=== PATIENT | female | born 1945 | race Caucasian/White ===

== ENCOUNTER 2017-07-17 17:42 | Emergency (ER) | payer MEDICARE, SELFPAY ==
[~2017-07-17] VITALS: Ht 157.5 cm; Wt 99.8 kg
[~2017-07-17 17:42] MED LIST: ALBU90OI INH; ALLERCLEAR10 MG PO; ATOR20 PO; ATOR40TA PO; Artificial Tear15 M6 BOTHEYES; BENZ100A PO; Bactrim Ds Tab1 EACH PO; CROM10OPSO BOTHEYES; Cleocin HCl300 MG PO; Hydroxyzine HCl50 MG PO; LEVSOD100 PO; LISHYD1012; METF500 PO; METF500C PO; METO50ER PO; MOMENI; NORT75; NORT75 PO; OMEP20ER PO; OMEPRAZOLE MAGN20 MG PO; PROM25; RANI150 PO; SIMV10 PO; SPACE CHAMBER1 EACH MC; Tussionex Penn480 ML PO; XYZAL5 MG; XYZAL5 MG PO; Zithromax250 MG PO
== END 2017-07-17 19:35 | disposition home or self-care (01) ==
LOC: ER 17:42
DX: S90.821A Blister (nonthermal), right foot, initial encounter (principal); E11.9 Type 2 diabetes mellitus without complications; Z85.3 Personal history of malignant neoplasm of breast; Z88.0 Allergy status to penicillin; Z88.1 Allergy status to other antibiotic agents; Z88.8 Allergy status to other drugs, medicaments and biological substances; Z88.5 Allergy status to narcotic agent; Z79.899 Other long term (current) drug therapy; Z98.890 Other specified postprocedural states; W01.190A Fall on same level from slipping, tripping and stumbling with subsequent striking against furniture, initial encounter
CPT/HCPCS: 99282

== ENCOUNTER 2017-07-31 00:45 | Day surgery (SDC) | payer MEDICARE, SELFPAY | END 2017-07-31 22:53 | disposition home or self-care (01) | LOC: WOUND 00:45 | DX: E11.621 Type 2 diabetes mellitus with foot ulcer (principal); L97.519 Non-pressure chronic ulcer of other part of right foot with unspecified severity; I10 Essential (primary) hypertension; Z87.891 Personal history of nicotine dependence; E11.40 Type 2 diabetes mellitus with diabetic neuropathy, unspecified | CPT/HCPCS: G0463 ==

== ENCOUNTER 2017-08-07 01:20 | Day surgery (SDC) | payer MEDICARE, SELFPAY | END 2017-08-07 22:48 | disposition home or self-care (01) | LOC: WOUND 01:20 | DX: E11.621 Type 2 diabetes mellitus with foot ulcer (principal); L97.512 Non-pressure chronic ulcer of other part of right foot with fat layer exposed; I10 Essential (primary) hypertension; Z87.891 Personal history of nicotine dependence | CPT/HCPCS: G0463 ==

== ENCOUNTER 2017-08-14 09:17 | Day surgery (SDC) | payer MEDICARE, SELFPAY | END 2017-08-14 22:42 | disposition home or self-care (01) | LOC: WOUND 09:17 | PROC: 0HBMXZZ Excision of Right Foot Skin, External Approach (ICD-10-PCS; principal; 2017-08-14) | DX: E11.621 Type 2 diabetes mellitus with foot ulcer (principal); L97.512 Non-pressure chronic ulcer of other part of right foot with fat layer exposed; I10 Essential (primary) hypertension; Z87.891 Personal history of nicotine dependence | CPT/HCPCS: G0463 ==

== ENCOUNTER 2017-08-21 00:14 | Day surgery (SDC) | payer MEDICARE, SELFPAY | END 2017-08-21 22:38 | disposition home or self-care (01) | LOC: WOUND 00:14 | DX: Z48.00 Encounter for change or removal of nonsurgical wound dressing (principal); E11.621 Type 2 diabetes mellitus with foot ulcer; L97.512 Non-pressure chronic ulcer of other part of right foot with fat layer exposed; I10 Essential (primary) hypertension | CPT/HCPCS: G0463 ==

== ENCOUNTER 2017-08-28 00:21 | Day surgery (SDC) | payer MEDICARE, SELFPAY | END 2017-08-28 15:47 | disposition home or self-care (01) | LOC: WOUND 00:21 | DX: Z48.00 Encounter for change or removal of nonsurgical wound dressing (principal); E11.621 Type 2 diabetes mellitus with foot ulcer; L97.512 Non-pressure chronic ulcer of other part of right foot with fat layer exposed; I10 Essential (primary) hypertension | CPT/HCPCS: G0463 ==

== ENCOUNTER 2017-09-04 12:52 | Day surgery (SDC) | payer MEDICARE, SELFPAY | END 2017-09-04 23:14 | disposition home or self-care (01) | LOC: WOUND 12:52 | DX: E11.621 Type 2 diabetes mellitus with foot ulcer (principal); I10 Essential (primary) hypertension; L97.512 Non-pressure chronic ulcer of other part of right foot with fat layer exposed | CPT/HCPCS: G0463 ==

== ENCOUNTER 2017-09-18 00:10 | Day surgery (SDC) | payer MEDICARE, SELFPAY | END 2017-09-18 13:36 | disposition home or self-care (01) | LOC: WOUND 00:10 | DX: Z48.00 Encounter for change or removal of nonsurgical wound dressing (principal); E11.621 Type 2 diabetes mellitus with foot ulcer; I10 Essential (primary) hypertension; L97.512 Non-pressure chronic ulcer of other part of right foot with fat layer exposed | CPT/HCPCS: G0463 ==

== ENCOUNTER 2017-10-07 09:38 | Emergency (ER) | payer MEDICARE, SELFPAY ==
[~2017-10-07] VITALS: Ht 157.5 cm; Wt 99.8 kg
[2017-10-07] MEDS ORDERED: Patanol5 ML BOTHEYES (10:03)
== END 2017-10-07 10:12 | disposition home or self-care (01) ==
LOC: ER 09:38
DX: H10.13 Acute atopic conjunctivitis, bilateral (principal); E11.9 Type 2 diabetes mellitus without complications; E03.9 Hypothyroidism, unspecified; K21.9 Gastro-esophageal reflux disease without esophagitis; Z87.891 Personal history of nicotine dependence; Z88.0 Allergy status to penicillin; Z88.1 Allergy status to other antibiotic agents; Z88.8 Allergy status to other drugs, medicaments and biological substances; Z88.5 Allergy status to narcotic agent; Z79.899 Other long term (current) drug therapy
CPT/HCPCS: 99282

== ENCOUNTER 2017-12-16 08:26 | Emergency (ER) | payer MEDICARE, SELFPAY ==
[~2017-12-16] VITALS: Ht 157.5 cm; Wt 102.5 kg
[~2017-12-16 08:26] MED LIST changes: +Patanol5 ML BOTHEYES
[2017-12-16] MEDS ORDERED: ANTIFUNGAL30 GM TOP (10:07)
== END 2017-12-16 10:19 | disposition home or self-care (01) ==
LOC: ER 08:26
DX: B35.3 Tinea pedis (principal); L03.116 Cellulitis of left lower limb; Z88.0 Allergy status to penicillin; Z88.1 Allergy status to other antibiotic agents; Z88.8 Allergy status to other drugs, medicaments and biological substances; Z88.5 Allergy status to narcotic agent; Z79.899 Other long term (current) drug therapy; Z85.3 Personal history of malignant neoplasm of breast; E11.9 Type 2 diabetes mellitus without complications; E03.9 Hypothyroidism, unspecified; K21.9 Gastro-esophageal reflux disease without esophagitis; Z87.891 Personal history of nicotine dependence
CPT/HCPCS: 99282

== ENCOUNTER 2018-04-23 00:18 | Day surgery (SDC) | payer MEDICARE, OTHER ==
[~2018-04-23 00:18] MED LIST changes: +ANTIFUNGAL30 GM TOP
== END 2018-04-23 22:45 | disposition home or self-care (01) ==
LOC: WOUND 00:18
DX: E11.621 Type 2 diabetes mellitus with foot ulcer (principal); L97.522 Non-pressure chronic ulcer of other part of left foot with fat layer exposed; E11.42 Type 2 diabetes mellitus with diabetic polyneuropathy; Z88.0 Allergy status to penicillin; Z88.8 Allergy status to other drugs, medicaments and biological substances
CPT/HCPCS: G0463

== ENCOUNTER 2018-04-30 12:30 | Day surgery (SDC) | payer MEDICARE, OTHER ==
[2018-05-08] MEDS ORDERED: Glucophage1000 MG PO (11:42)
[2018-05-08] MEDS ORDERED: ANAS1 PO (11:43)
== END 2018-04-30 23:03 | disposition home or self-care (01) ==
LOC: WOUND 12:30
DX: E11.621 Type 2 diabetes mellitus with foot ulcer (principal); L97.512 Non-pressure chronic ulcer of other part of right foot with fat layer exposed
CPT/HCPCS: 73660; G0463

== ENCOUNTER 2018-05-07 12:05 | Day surgery (SDC) | payer MEDICARE ==
[2018-05-08] MEDS ORDERED: Glucophage1000 MG PO (11:42)
[2018-05-08] MEDS ORDERED: ANAS1 PO (11:43)
== END 2018-05-07 22:45 | disposition home or self-care (01) ==
LOC: WOUND 12:05
DX: E11.621 Type 2 diabetes mellitus with foot ulcer (principal); L97.522 Non-pressure chronic ulcer of other part of left foot with fat layer exposed; I10 Essential (primary) hypertension; E11.42 Type 2 diabetes mellitus with diabetic polyneuropathy; E78.5 Hyperlipidemia, unspecified
CPT/HCPCS: G0463

== ENCOUNTER 2018-05-11 08:54 | Day surgery (SDC) | payer MEDICARE ==
[~2018-05-11] VITALS: Ht 157.5 cm; Wt 100.7 kg
[~2018-05-11 08:54] MED LIST changes: +ANAS1 PO; +Glucophage1000 MG PO
--- NOTE | 2018-05-11 10:11 | NUR ---
PT ADMITTED TO [facility]. AGREES WITHM PLANNED PROCEDURE. MEDS, ALLERGIES AND HX REVIEWED. TOLERATED BOWEL PREP, STATE LAST BM CLEAR.
--- NOTE | 2018-05-11 10:19 | NUR ---
LUNG SOUNDS CLEAR,
--- NOTE | 2018-05-11 10:59 | NUR ---
05/11/18 1059 Urszula Wolf PATIENT DETERMINED TO BE ASA APPROPRIATE FOR PROPOFOL SEDATION PRIOR TO START OF PROCEDURE BY DR. HASTINGS. 3-LEAD EKG REVIEWED WITH PHYSICIAN PRIOR TO START OF PROCEDURE. PATIENT CONFIRMS NPO STATUS AND AGREES WITH SCHEDULED PROCEDURE. History, Chart, Medications and Allergies reviewed before start of procedure. MONITOR INTACT WITH CONTINUOUS PULSE OXIMETRY AND INTERMITTENT BP. O2 VIA N/C INTACT THROUGHOUT SEDATION/PROCEDURE, 4L O2. Bite Block Placed, HURRICAINE SPRAY TO OROPHARYX IMMEDIATELY PRESEDATION.
--- NOTE | 2018-05-11 12:05 | NUR ---
1155- Discharge instructions reviewed with patient. Patient verbalizes understanding. Copy given to patient to take home. Discharged via wheelchair to private car for ride home.
== END 2018-05-11 11:55 | disposition home or self-care (01) ==
LOC: ORSCMMR 08:54 → ORD 10:00 → ORSCMMR 10:00 → ORD 05-12 09:00
PROVIDERS: Internal Medicine Gastroenterology
PROC: 0DBM8ZX Excision of Descending Colon, Via Natural or Artificial Opening Endoscopic, Diagnostic (ICD-10-PCS; principal; 2018-05-11 10:00)
PROC: 0DBH8ZX Excision of Cecum, Via Natural or Artificial Opening Endoscopic, Diagnostic (ICD-10-PCS; principal; 2018-05-11 10:00)
PROC: 0DB48ZX Excision of Esophagogastric Junction, Via Natural or Artificial Opening Endoscopic, Diagnostic (ICD-10-PCS; principal; 2018-05-11 10:00)
DX: R11.2 Nausea with vomiting, unspecified (principal); K21.9 Gastro-esophageal reflux disease without esophagitis; K44.9 Diaphragmatic hernia without obstruction or gangrene; Z12.11 Encounter for screening for malignant neoplasm of colon; Z86.010 Personal history of colon polyps; Z80.0 Family history of malignant neoplasm of digestive organs; D12.0 Benign neoplasm of cecum; D12.4 Benign neoplasm of descending colon; E03.9 Hypothyroidism, unspecified; E11.9 Type 2 diabetes mellitus without complications; I10 Essential (primary) hypertension; Z79.899 Other long term (current) drug therapy; Z87.891 Personal history of nicotine dependence; E66.01 Morbid (severe) obesity due to excess calories
CPT/HCPCS: 82947; 88305; 88342; J2250; J7120

== ENCOUNTER 2018-05-14 12:30 | Day surgery (SDC) | payer MEDICARE | END 2018-05-14 22:47 | disposition home or self-care (01) | LOC: WOUND 12:30 | DX: E11.621 Type 2 diabetes mellitus with foot ulcer (principal); L97.522 Non-pressure chronic ulcer of other part of left foot with fat layer exposed; E11.42 Type 2 diabetes mellitus with diabetic polyneuropathy; I10 Essential (primary) hypertension; E78.5 Hyperlipidemia, unspecified; E66.9 Obesity, unspecified; Z88.0 Allergy status to penicillin; Z88.8 Allergy status to other drugs, medicaments and biological substances; Z79.84 Long term (current) use of oral hypoglycemic drugs | CPT/HCPCS: 87070; 87077; 87186; 87205; G0463 ==

== ENCOUNTER 2018-05-21 00:19 | Day surgery (SDC) | payer MEDICARE | END 2018-05-21 23:58 | disposition home or self-care (01) | LOC: WOUND 00:19 | DX: Z48.00 Encounter for change or removal of nonsurgical wound dressing (principal); E11.621 Type 2 diabetes mellitus with foot ulcer; E11.42 Type 2 diabetes mellitus with diabetic polyneuropathy; E78.5 Hyperlipidemia, unspecified; L97.512 Non-pressure chronic ulcer of other part of right foot with fat layer exposed | CPT/HCPCS: G0463 ==

== ENCOUNTER 2018-05-29 12:30 | Day surgery (SDC) | payer MEDICARE | END 2018-05-29 23:05 | disposition home or self-care (01) | LOC: WOUND 12:30 | DX: E11.621 Type 2 diabetes mellitus with foot ulcer (principal); L97.512 Non-pressure chronic ulcer of other part of right foot with fat layer exposed; I10 Essential (primary) hypertension; E11.42 Type 2 diabetes mellitus with diabetic polyneuropathy; E78.5 Hyperlipidemia, unspecified; Z79.84 Long term (current) use of oral hypoglycemic drugs | CPT/HCPCS: G0463 ==

== ENCOUNTER 2018-06-05 12:30 | Day surgery (SDC) | payer MEDICARE, SELFPAY | END 2018-06-05 22:39 | disposition home or self-care (01) | LOC: WOUND 12:30 | DX: E11.621 Type 2 diabetes mellitus with foot ulcer (principal); L97.512 Non-pressure chronic ulcer of other part of right foot with fat layer exposed; E11.42 Type 2 diabetes mellitus with diabetic polyneuropathy; E11.51 Type 2 diabetes mellitus with diabetic peripheral angiopathy without gangrene; E66.9 Obesity, unspecified; E78.5 Hyperlipidemia, unspecified; R10.13 Epigastric pain | CPT/HCPCS: 78264; A9541; G0463 ==

== ENCOUNTER 2018-06-19 00:36 | Day surgery (SDC) | payer MEDICARE | END 2018-06-19 23:08 | disposition home or self-care (01) | LOC: WOUND 00:36 | DX: E11.621 Type 2 diabetes mellitus with foot ulcer (principal); L97.522 Non-pressure chronic ulcer of other part of left foot with fat layer exposed; E11.42 Type 2 diabetes mellitus with diabetic polyneuropathy; Z88.0 Allergy status to penicillin; Z88.8 Allergy status to other drugs, medicaments and biological substances; Z79.84 Long term (current) use of oral hypoglycemic drugs | CPT/HCPCS: G0463 ==

== ENCOUNTER 2018-06-26 12:30 | Day surgery (SDC) | payer MEDICARE, OTHER | END 2018-06-26 23:13 | disposition home or self-care (01) | LOC: WOUND 12:30 | DX: E11.621 Type 2 diabetes mellitus with foot ulcer (principal); L97.522 Non-pressure chronic ulcer of other part of left foot with fat layer exposed; E11.42 Type 2 diabetes mellitus with diabetic polyneuropathy; Z88.0 Allergy status to penicillin; Z88.8 Allergy status to other drugs, medicaments and biological substances; E66.9 Obesity, unspecified; Z79.82 Long term (current) use of aspirin; Z79.84 Long term (current) use of oral hypoglycemic drugs | CPT/HCPCS: G0463 ==

== ENCOUNTER 2018-07-03 12:02 | Day surgery (SDC) | payer MEDICARE, OTHER | END 2018-07-03 13:00 | disposition home or self-care (01) | LOC: WOUND 12:02 | DX: E11.621 Type 2 diabetes mellitus with foot ulcer (principal); L97.522 Non-pressure chronic ulcer of other part of left foot with fat layer exposed; E11.42 Type 2 diabetes mellitus with diabetic polyneuropathy; Z88.0 Allergy status to penicillin; Z88.8 Allergy status to other drugs, medicaments and biological substances; E66.9 Obesity, unspecified; Z79.82 Long term (current) use of aspirin; Z79.84 Long term (current) use of oral hypoglycemic drugs | CPT/HCPCS: G0463 ==

== ENCOUNTER 2018-07-17 00:48 | Day surgery (SDC) | payer MEDICARE, OTHER | END 2018-07-17 12:00 | disposition home or self-care (01) | LOC: WOUND 00:48 | DX: E11.621 Type 2 diabetes mellitus with foot ulcer (principal); L97.522 Non-pressure chronic ulcer of other part of left foot with fat layer exposed; I10 Essential (primary) hypertension; E11.42 Type 2 diabetes mellitus with diabetic polyneuropathy; E78.5 Hyperlipidemia, unspecified; I83.90 Asymptomatic varicose veins of unspecified lower extremity; E66.9 Obesity, unspecified; Z79.899 Other long term (current) drug therapy; Z79.84 Long term (current) use of oral hypoglycemic drugs | CPT/HCPCS: G0463 ==

== ENCOUNTER 2018-07-31 08:06 | Day surgery (SDC) | payer MEDICARE, OTHER | END 2018-07-31 23:17 | disposition home or self-care (01) | LOC: WOUND 08:06 | DX: E11.621 Type 2 diabetes mellitus with foot ulcer (principal); L97.522 Non-pressure chronic ulcer of other part of left foot with fat layer exposed; E11.40 Type 2 diabetes mellitus with diabetic neuropathy, unspecified; I10 Essential (primary) hypertension | CPT/HCPCS: G0463 ==

== ENCOUNTER 2018-08-07 00:48 | Day surgery (SDC) | payer MEDICARE, OTHER | END 2018-08-07 23:04 | disposition home or self-care (01) | LOC: WOUND 00:48 | DX: E11.621 Type 2 diabetes mellitus with foot ulcer (principal); L97.512 Non-pressure chronic ulcer of other part of right foot with fat layer exposed; E11.42 Type 2 diabetes mellitus with diabetic polyneuropathy; I10 Essential (primary) hypertension; E78.5 Hyperlipidemia, unspecified; E66.9 Obesity, unspecified; Z79.899 Other long term (current) drug therapy; Z79.82 Long term (current) use of aspirin; Z68.41 Body mass index [BMI] 40.0-44.9, adult | CPT/HCPCS: 87070; 87205; G0463 ==

== ENCOUNTER 2018-08-14 12:15 | Day surgery (SDC) | payer MEDICARE, OTHER | END 2018-08-14 23:27 | disposition home or self-care (01) | LOC: WOUND 12:15 | DX: E11.621 Type 2 diabetes mellitus with foot ulcer (principal); L97.522 Non-pressure chronic ulcer of other part of left foot with fat layer exposed; E11.42 Type 2 diabetes mellitus with diabetic polyneuropathy; I10 Essential (primary) hypertension; E78.5 Hyperlipidemia, unspecified; E66.9 Obesity, unspecified | CPT/HCPCS: G0463 ==

== ENCOUNTER 2018-08-21 12:30 | Day surgery (SDC) | payer MEDICARE, OTHER | END 2018-08-21 22:44 | disposition home or self-care (01) | LOC: WOUND 12:30 | DX: E11.621 Type 2 diabetes mellitus with foot ulcer (principal); L97.522 Non-pressure chronic ulcer of other part of left foot with fat layer exposed; E11.42 Type 2 diabetes mellitus with diabetic polyneuropathy; I10 Essential (primary) hypertension; E78.5 Hyperlipidemia, unspecified; E66.9 Obesity, unspecified; Z68.41 Body mass index [BMI] 40.0-44.9, adult | CPT/HCPCS: G0463 ==

== ENCOUNTER 2018-08-28 12:10 | Day surgery (SDC) | payer MEDICARE, OTHER | END 2018-08-28 16:00 | disposition home or self-care (01) | LOC: WOUND 12:10 | DX: E11.621 Type 2 diabetes mellitus with foot ulcer (principal); L97.522 Non-pressure chronic ulcer of other part of left foot with fat layer exposed; E11.40 Type 2 diabetes mellitus with diabetic neuropathy, unspecified; E11.65 Type 2 diabetes mellitus with hyperglycemia; M19.90 Unspecified osteoarthritis, unspecified site; E66.9 Obesity, unspecified; E78.5 Hyperlipidemia, unspecified; I10 Essential (primary) hypertension; Z85.3 Personal history of malignant neoplasm of breast; Z92.3 Personal history of irradiation; Z98.890 Other specified postprocedural states; Z68.41 Body mass index [BMI] 40.0-44.9, adult | CPT/HCPCS: G0463 ==

== ENCOUNTER 2018-09-04 12:00 | Day surgery (SDC) | payer MEDICARE, OTHER | END 2018-09-04 22:56 | disposition home or self-care (01) | LOC: WOUND 12:00 | DX: E11.621 Type 2 diabetes mellitus with foot ulcer (principal); L97.522 Non-pressure chronic ulcer of other part of left foot with fat layer exposed; E11.42 Type 2 diabetes mellitus with diabetic polyneuropathy; E11.40 Type 2 diabetes mellitus with diabetic neuropathy, unspecified; I10 Essential (primary) hypertension; E78.5 Hyperlipidemia, unspecified; E66.9 Obesity, unspecified; Z68.41 Body mass index [BMI] 40.0-44.9, adult | CPT/HCPCS: G0463 ==

== ENCOUNTER 2018-09-11 00:24 | Day surgery (SDC) | payer MEDICARE, OTHER | END 2018-09-12 22:55 | disposition home or self-care (01) | LOC: WOUND 00:24 | DX: E11.621 Type 2 diabetes mellitus with foot ulcer (principal); L97.522 Non-pressure chronic ulcer of other part of left foot with fat layer exposed; E11.42 Type 2 diabetes mellitus with diabetic polyneuropathy; E78.5 Hyperlipidemia, unspecified; E66.9 Obesity, unspecified; I10 Essential (primary) hypertension; Z85.3 Personal history of malignant neoplasm of breast; Z92.23 Personal history of estrogen therapy; Z98.890 Other specified postprocedural states; Z68.41 Body mass index [BMI] 40.0-44.9, adult | CPT/HCPCS: 87070; 87205; G0463 ==

== ENCOUNTER 2018-09-17 00:29 | Day surgery (SDC) | payer MEDICARE, OTHER | END 2018-09-17 22:43 | disposition home or self-care (01) | LOC: WOUND 00:29 | DX: E11.621 Type 2 diabetes mellitus with foot ulcer (principal); T25.221A Burn of second degree of right foot, initial encounter; L97.522 Non-pressure chronic ulcer of other part of left foot with fat layer exposed; E11.40 Type 2 diabetes mellitus with diabetic neuropathy, unspecified; I10 Essential (primary) hypertension | CPT/HCPCS: G0463 ==

== ENCOUNTER 2018-09-25 01:21 | Day surgery (SDC) | payer MEDICARE, OTHER | END 2018-09-25 22:43 | disposition home or self-care (01) | LOC: WOUND 01:21 | DX: E11.621 Type 2 diabetes mellitus with foot ulcer (principal); T25.221A Burn of second degree of right foot, initial encounter; L97.522 Non-pressure chronic ulcer of other part of left foot with fat layer exposed; E11.42 Type 2 diabetes mellitus with diabetic polyneuropathy; E11.65 Type 2 diabetes mellitus with hyperglycemia; I10 Essential (primary) hypertension; E78.5 Hyperlipidemia, unspecified; E66.9 Obesity, unspecified; Z68.41 Body mass index [BMI] 40.0-44.9, adult | CPT/HCPCS: G0463 ==

== ENCOUNTER 2018-10-02 11:52 | Day surgery (SDC) | payer MEDICARE | END 2018-10-02 22:59 | disposition home or self-care (01) | LOC: WOUND 11:52 | DX: T25.221A Burn of second degree of right foot, initial encounter (principal); E11.621 Type 2 diabetes mellitus with foot ulcer; L97.522 Non-pressure chronic ulcer of other part of left foot with fat layer exposed; E11.40 Type 2 diabetes mellitus with diabetic neuropathy, unspecified; I10 Essential (primary) hypertension | CPT/HCPCS: G0463 ==

== ENCOUNTER 2018-10-09 12:10 | Day surgery (SDC) | payer MEDICARE | END 2018-10-09 22:45 | disposition home or self-care (01) | LOC: WOUND 12:10 | DX: E11.621 Type 2 diabetes mellitus with foot ulcer (principal); L97.522 Non-pressure chronic ulcer of other part of left foot with fat layer exposed; T25.221A Burn of second degree of right foot, initial encounter | CPT/HCPCS: G0463 ==

== ENCOUNTER 2018-10-16 12:06 | Day surgery (SDC) | payer MEDICARE | END 2018-10-16 23:00 | disposition home or self-care (01) | LOC: WOUND 12:06 | DX: E11.622 Type 2 diabetes mellitus with other skin ulcer (principal); L97.329 Non-pressure chronic ulcer of left ankle with unspecified severity; E11.621 Type 2 diabetes mellitus with foot ulcer; L97.522 Non-pressure chronic ulcer of other part of left foot with fat layer exposed; E11.42 Type 2 diabetes mellitus with diabetic polyneuropathy; E78.5 Hyperlipidemia, unspecified; Z85.3 Personal history of malignant neoplasm of breast; Z92.3 Personal history of irradiation; Z98.890 Other specified postprocedural states | CPT/HCPCS: G0463 ==

== ENCOUNTER 2018-10-23 12:15 | Day surgery (SDC) | payer MEDICARE, SELFPAY | END 2018-10-23 23:20 | disposition home or self-care (01) | LOC: WOUND 12:15 | DX: E11.622 Type 2 diabetes mellitus with other skin ulcer (principal); L97.329 Non-pressure chronic ulcer of left ankle with unspecified severity; E11.621 Type 2 diabetes mellitus with foot ulcer; L97.501 Non-pressure chronic ulcer of other part of unspecified foot limited to breakdown of skin; E11.40 Type 2 diabetes mellitus with diabetic neuropathy, unspecified | CPT/HCPCS: 87070; 87205 ==

== ENCOUNTER 2018-10-30 11:53 | Day surgery (SDC) | payer MEDICARE | END 2018-10-30 23:09 | disposition home or self-care (01) | LOC: WOUND 11:53 | DX: E11.622 Type 2 diabetes mellitus with other skin ulcer (principal); L97.329 Non-pressure chronic ulcer of left ankle with unspecified severity; E11.621 Type 2 diabetes mellitus with foot ulcer; L97.501 Non-pressure chronic ulcer of other part of unspecified foot limited to breakdown of skin | CPT/HCPCS: G0463 ==

== ENCOUNTER 2018-11-13 12:00 | Day surgery (SDC) | payer MEDICARE, OTHER | END 2018-11-13 23:37 | disposition home or self-care (01) | LOC: WOUND 12:00 | DX: E11.622 Type 2 diabetes mellitus with other skin ulcer (principal); L97.319 Non-pressure chronic ulcer of right ankle with unspecified severity; E11.42 Type 2 diabetes mellitus with diabetic polyneuropathy; E11.65 Type 2 diabetes mellitus with hyperglycemia; M19.90 Unspecified osteoarthritis, unspecified site; I83.90 Asymptomatic varicose veins of unspecified lower extremity; E66.9 Obesity, unspecified; E78.5 Hyperlipidemia, unspecified; Z85.3 Personal history of malignant neoplasm of breast; Z92.3 Personal history of irradiation | CPT/HCPCS: G0463 ==

== ENCOUNTER 2019-06-03 13:49 | Inpatient (IN) | payer MEDICARE, OTHER ==
[~2019-06-03] VITALS: Ht 157.5 cm; Wt 94.1 kg
[2019-06-03 14:34] LABS: BASOPHILS ABSOLUTE AUTO 0.07 K/mm3 (0.00-0.23); BASOPHILS PERCENT AUTO 0 % (0-2); EOSINOPHILS ABSOLUTE AUTO 0.37 K/mm3 (0.00-0.68); EOSINOPHILS PERCENT AUTO 2 % (0-6); Hematocrit 44.2 % (33.0-51.0); Hemoglobin 14.4 g/dL (11.5-16.0); IMMATURE GRAN ABSOLUTE AUTO 0.09 K/mm3 (0.00-0.10); IMMATURE GRAN PERCENT AUTO 0 % (0-1); LYMPHOCYTES ABSOLUTE AUTO 2.33 K/mm3 (0.84-5.20); LYMPHOCYTES PERCENT AUTO 11 % (21-46); MONOCYTES ABSOLUTE AUTO 1.34 K/mm3 (0.16-1.47); MONOCYTES PERCENT AUTO 6 % (4-13); Mean Corpuscular HGB Conc 32.6 g/dL (31.5-36.5); Mean Corpuscular Volume 86 fL (80-100); Mean Platelet Volume 10.5 fL (9.1-12.4); NEUTROPHILS ABSOLUTE AUTO 16.62 K/mm3 (1.96-9.15); NEUTROPHILS PERCENT AUTO 80 % (41-73); Platelet Count 255 K/mm3 (150-400); RDW Coefficient Variation 14.2 % (11.7-14.2); RDW Standard Deviation 44.8 fL (35.1-46.3); Red Blood Cell Count 5.14 M/mm3 (3.80-5.20); White Blood Cell Count 20.82 K/mm3 (4.00-11.30)
[2019-06-03] MEDS ORDERED: ATOR20 PO (15:05)
[2019-06-03 15:09] LABS: Alanine Aminotransfer (ALT/SGP 46 U/L (12-78); Albumin, Blood 3.1 g/dL (3.4-5.0); Albumin/Globulin Ratio 0.7 (0.8-1.8); Alk Phos 85 U/L (50-136); Anion Gap 12 mmol/L (6-16); Aspartate Aminotrans (AST/SGOT 38 U/L (12-37); Bilirubin, Total 0.7 mg/dL (0.1-1.0); Blood Urea Nitrogen 37 mg/dL (8-24); Bun/Creatinine Ratio 50.4 (12.0-20.0); CO2, Blood 20 mmol/L (21-32); CPK Creatine Kinase 306 U/L (26-193); Calcium, Blood 8.7 mg/dL (8.5-10.1); Chloride, Blood 107 mmol/L (98-108); Creatinine, Blood 0.73 mg/dL (0.40-1.00); Globulin, Blood 4.2 g/dL (2.2-4.0); Glomerular Filtration Rate >60 (60-); Glucose, Blood 140 mg/dL (70-99); Potassium, Blood 3.4 mmol/L (3.5-5.5); Sodium, Blood 139 mmol/L (136-145); Total Protein, Blood 7.3 g/dL (6.4-8.2); Troponin I 0.019 ng/mL (0.000-0.040)
[2019-06-03 15:29] LABS: Creatine Kinase MB 6.8 ng/mL (0.0-3.6); Creatine Kinase MB Index 2.2 (0.0-4.0)
[2019-06-03 16:31] LABS: Source, Urine Clean Catch
[2019-06-03 16:35] LABS: Blood, Urine 1+ (Neg); Glucose Qualitative, Urine Neg (Neg); Ketones, Urine 4+ (Neg); Leukocyte Esterase, Urine 2+ (Neg); Nitrite, Urine Neg (Neg); Protein, Urine 2+ (Neg); Urobilinogen, Urine 1+ (Normal)
[2019-06-03 16:42] LABS: Appearance, Urine Hazy (Clear); Bilirubin, Urine 2+ (Neg); Color, Urine Yellow (P-Yellow); Mucus Mod (0-Heavy)
[2019-06-03 16:43] LABS: Bacteria Mod /hpf; Squamous Epithelial Cells Few /hpf (Few)
--- NOTE | 2019-06-04 01:13 | NUR ---
PT IS A VERY DIFFICULT STICK AND WAS UNABLE TO PLACE 18G IV REQUESTED FOR CT SCAN. NURSE NEHAL BLACK CAME AND USED SONOSITE TO PLACE 20G IV IN RAC. IMAGING WAS UNABLE TO USE THIS FOR CT SCAN. INFORMED ANALYST FOOD AND BEVERAGE JEAN OF THIS. SHE WILL ORDER V/Q SCAN FOR THE MORNING. PT PRESENTLY APPEARS IN NO ACUTE DISTRESS. WILL CONTINUE TO MONITOR.
--- NOTE | 2019-06-04 06:05 | NUR ---
NOC SHIFT SUMMARY PT IS PLEASANT AND COOPERATIVE WITH CARE. SHE IS AAOX4 AND ABLE TO MAKE NEEDS KNOWN. COMES TO HOSPITAL AFTER BEING DOWN ON THE FLOOR FOR APPROX 15 HOURS. ADMITTED FOR SEPTIS, UTI, R LUNG INFILTRATE. CONCERNS FOR PE. UNABLE TO OBTAIN CT FOR PE STUDY THIS NIGHT, SEE PRIOR NOTE. HOSPITALIST AWARE AND HAS ORDERED V/Q SCAN FOR THIS MORNING. LAST TROPONIN 0.020 AT 2230. NEXT DRAW IS AT 0630. VS STABLE. TREATED FOR R LOWER CHEST PAIN PER EMAR. AFTER BEING SETTLED IN PT HAS SLEPT MUCH OF THE NIGHT WITH SOFT SNORING. PRESENTLY APPEARS IN NO ACUTE DISTRESS. WILL CONTINUE TO MONITOR.
[2019-06-04 06:56] LABS: BASOPHILS ABSOLUTE AUTO 0.04 K/mm3 (0.00-0.23); BASOPHILS PERCENT AUTO 0 % (0-2); EOSINOPHILS ABSOLUTE AUTO 0.37 K/mm3 (0.00-0.68); EOSINOPHILS PERCENT AUTO 3 % (0-6); Hematocrit 38.6 % (33.0-51.0); Hemoglobin 12.2 g/dL (11.5-16.0); IMMATURE GRAN ABSOLUTE AUTO 0.05 K/mm3 (0.00-0.10); IMMATURE GRAN PERCENT AUTO 0 % (0-1); LYMPHOCYTES ABSOLUTE AUTO 2.15 K/mm3 (0.84-5.20); LYMPHOCYTES PERCENT AUTO 15 % (21-46); MONOCYTES ABSOLUTE AUTO 0.99 K/mm3 (0.16-1.47); MONOCYTES PERCENT AUTO 7 % (4-13); Mean Corpuscular HGB 27.9 pg (26.0-34.0); Mean Corpuscular HGB Conc 31.6 g/dL (31.5-36.5); Mean Corpuscular Volume 88 fL (80-100); Mean Platelet Volume 10.9 fL (9.1-12.4); NEUTROPHILS ABSOLUTE AUTO 10.32 K/mm3 (1.96-9.15); NEUTROPHILS PERCENT AUTO 74 % (41-73); Platelet Count 179 K/mm3 (150-400); RDW Coefficient Variation 14.5 % (11.7-14.2); RDW Standard Deviation 46.5 fL (35.1-46.3); Red Blood Cell Count 4.38 M/mm3 (3.80-5.20); White Blood Cell Count 13.92 K/mm3 (4.00-11.30)
[2019-06-04 07:16] LABS: Albumin, Blood 2.7 g/dL (3.4-5.0); Anion Gap 7 mmol/L (6-16); Blood Urea Nitrogen 23 mg/dL (8-24); Bun/Creatinine Ratio 37.2 (12.0-20.0); CO2, Blood 22 mmol/L (21-32); Calcium, Blood 8.3 mg/dL (8.5-10.1); Chloride, Blood 110 mmol/L (98-108); Creatinine, Blood 0.62 mg/dL (0.40-1.00); Glomerular Filtration Rate >60 (60-); Glucose, Blood 109 mg/dL (70-99); Phosphorus, Blood 3.1 mg/dL (2.5-4.9); Potassium, Blood 3.4 mmol/L (3.5-5.5); Sodium, Blood 139 mmol/L (136-145)
--- NOTE | 2019-06-04 19:27 | NUR ---
SHIFT SUMMARY GENE GOT UP AND WALKED IN HALLWAY W PT, AO1. GENERALIZED WOUNDS AND SMALL SCABS EVERYWHERE, BUT L BUTTOCK HAS MEPILEX WITH PROBABLE OPEN SHALLOW BLISTER. PT COMPLAINED OF SLIGHT R RIB PAIN AND GOT TYELNOL, WHICH HELPED. UNABLE TO GET CT WITH CONTRAST DUE TO TOTAL INABILITY TO GET ANY IV AC OR ABOVE FOR THE SCAN, DR RIOS AWARE, SCAN CANCELED. LOW URINE OUTPUT TODAY, GAVE REPORT TO NIGHT RN TO BLADDER SCAN IF NO MORE URINE IN NEXT COUPLE HOURS. LEG DUPLEX NEGATIVE. TOOK MEDS PRESCRIBED, CALL LIGHT IN REACH, WCTM
--- NOTE | 2019-06-05 06:37 | NUR ---
SHIFT SUMMARY PT IS A 73 Y/O FEMALE, ADMITTED FOR SEPSIS R/T A UTI. SHE IS A&O X 4, A SBA UP TO THE BATHROOM. PT WAS MEDICATED X1 FOR CHRONIC BACK PAIN AT HS WITH PRN HYDROCODONE. NO COMPLAINTS OF NAUSEA OR SOB. VITAL SIGNS STABLE. NO ACUTE CHANGES IN PT CONDITION NOTED DURING THE NIGHT. PT REPORTS THAT SHE SLEPT WELL. WILL CONTINUE TO MONITOR AND TREAT PER EMAR UNTIL HAND OFF TO DAY SHIFT RN.
[2019-06-05] MEDS ORDERED: MUPIROCIN15 GM TOP (10:23)
[2019-06-05] MEDS ORDERED: NYST100000 TOP (10:24)
[2019-06-05] MEDS ORDERED: Florastor250 MG PO (10:25)
[2019-06-05] MEDS ORDERED: Bactrim Ds Tab1 EACH PO (10:26)
--- NOTE | 2019-06-05 11:40 | NUR ---
PATIENT D/C'D TO HOME WITH NEIGHBOR DYLLAN. D/C INSTRUCTIONS AND EDUCATION DISCUSSED WITH PATIENT AND COPY PROVIDED. RX MEDICATIONS FAXED TO [facility]. PATIENT DENIED ANY FURTHER QUESTIONS OR CONCERNS. NEIGHBOR DYLLAN PULLED ME ASIDE BEFORE LEAVING WITH PATIENT AND ASKED IF THERE WAS ANY ASSISTANCE AVAILABLE TO HELP ARNOLD. SHE SAID THAT SHE HAD GONE OVER TO ARNOLD'S HOUSE AND IT WAS SO CLUTTERED THAT SHE COULDN'T EVEN GET THROUGH THE DOOR. MESSAGE LEFT WITH ETIOLOGIST'S TO FOLLOW UP ON FRIDAY. ARNOLD WILL BE STAYING WITH WITH DYLLAN THROUGH THE WEEKEND.
== END 2019-06-05 11:43 | disposition home or self-care (01) | DRG 871 ==
LOC: ER 13:49 → ERHOLD 18:09 → MEDS 19:11
PROVIDERS: Nurse Practitioner Acute Care; Physician Assistant; ADMIT Internal Medicine
DX: A41.9 Sepsis, unspecified organism (principal); G93.41 Metabolic encephalopathy; N39.0 Urinary tract infection, site not specified; E86.0 Dehydration; E87.6 Hypokalemia; E78.5 Hyperlipidemia, unspecified; E11.42 Type 2 diabetes mellitus with diabetic polyneuropathy; E11.319 Type 2 diabetes mellitus with unspecified diabetic retinopathy without macular edema; E11.43 Type 2 diabetes mellitus with diabetic autonomic (poly)neuropathy; K31.84 Gastroparesis; E03.9 Hypothyroidism, unspecified; K21.9 Gastro-esophageal reflux disease without esophagitis; K22.70 Barrett's esophagus without dysplasia; Z74.09 Other reduced mobility; Z85.3 Personal history of malignant neoplasm of breast; Z92.3 Personal history of irradiation; Z87.891 Personal history of nicotine dependence; Z88.0 Allergy status to penicillin; Z88.8 Allergy status to other drugs, medicaments and biological substances; Z79.811 Long term (current) use of aromatase inhibitors; Z79.84 Long term (current) use of oral hypoglycemic drugs; Z79.899 Other long term (current) drug therapy
CPT/HCPCS: 36415; 70450; 71046; 80053; 80069; 81001; 82550; 82553; 82947; 83605; 83735; 83880; 84484; 85025; 85379; 87086; 90471; 90714; 93005; 93010; 93970; 96361; 96365; 97110; 97116; 97162; 99285-25; A9270; A9270-GY; J0696; J1170; J1650; J3480; J7030

== ENCOUNTER → 2019-06-18 | Outpatient (CLI) | payer MEDICARE, OTHER ==
[~2019-06-18] MED LIST changes: +Florastor250 MG PO; +MUPIROCIN15 GM TOP; +NYST100000 TOP
== END | disposition home or self-care (01) ==
LOC: LAB 14:30 → LAB SHORT 14:30
DX: R30.9 Painful micturition, unspecified (principal)
CPT/HCPCS: 87086

== ENCOUNTER → 2019-09-30 | Outpatient (CLI) | payer MEDICARE, OTHER ==
[2019-09-30 10:30] LABS: BASOPHILS ABSOLUTE AUTO 0.07 K/mm3 (0.00-0.23); BASOPHILS PERCENT AUTO 1 % (0-2); EOSINOPHILS PERCENT AUTO 4 % (0-6); Hematocrit 39.5 % (33.0-51.0); Hemoglobin 12.3 g/dL (11.5-16.0); IMMATURE GRAN ABSOLUTE AUTO 0.04 K/mm3 (0.00-0.10); IMMATURE GRAN PERCENT AUTO 0 % (0-1); LYMPHOCYTES ABSOLUTE AUTO 2.92 K/mm3 (0.84-5.20); LYMPHOCYTES PERCENT AUTO 27 % (21-46); MONOCYTES ABSOLUTE AUTO 0.56 K/mm3 (0.16-1.47); MONOCYTES PERCENT AUTO 5 % (4-13); Mean Corpuscular HGB 26.6 pg (26.0-34.0); Mean Corpuscular HGB Conc 31.1 g/dL (31.5-36.5); Mean Corpuscular Volume 86 fL (80-100); NEUTROPHILS ABSOLUTE AUTO 6.99 K/mm3 (1.96-9.15); NEUTROPHILS PERCENT AUTO 64 % (41-73); Platelet Count 229 K/mm3 (150-400); RDW Coefficient Variation 13.9 % (11.7-14.2); RDW Standard Deviation 43.1 fL (35.1-46.3); Red Blood Cell Count 4.62 M/mm3 (3.80-5.20); White Blood Cell Count 10.98 K/mm3 (4.00-11.30)
[2019-09-30 10:37] LABS: Free Thyroxine 1.06 ng/dL (0.70-1.60)
[2019-09-30 10:38] LABS: Alanine Aminotransfer (ALT/SGP 19 U/L (12-78); Albumin, Blood 3.4 g/dL (3.4-5.0); Alk Phos 77 U/L (50-136); Anion Gap 8 mmol/L (6-16); Aspartate Aminotrans (AST/SGOT 11 U/L (12-37); Bilirubin, Total 0.3 mg/dL (0.1-1.0); Blood Urea Nitrogen 20 mg/dL (8-24); CO2, Blood 24 mmol/L (21-32); Calcium, Blood 9.1 mg/dL (8.5-10.1); Chloride, Blood 108 mmol/L (98-108); Creatinine, Blood 0.67 mg/dL (0.40-1.00); Globulin, Blood 3.5 g/dL (2.2-4.0); Glomerular Filtration Rate >60 (60-); Glucose, Blood 156 mg/dL (70-99); Sodium, Blood 140 mmol/L (136-145); Total Protein, Blood 6.9 g/dL (6.4-8.2)
[2019-09-30 10:40] LABS: Triiodothyronine, Free 2.53 pg/mL (2.18-3.98)
== END | disposition home or self-care (01) ==
LOC: LAB 09:41 → LAB SHORT 09:41
PROVIDERS: Nurse Practitioner Family
DX: R41.82 Altered mental status, unspecified (principal); R44.1 Visual hallucinations
CPT/HCPCS: 80053; 84439; 84443; 84481; 85025

== ENCOUNTER 2020-02-05 15:03 | Emergency (ER) | payer MEDICARE ==
[~2020-02-05] VITALS: Ht 157.5 cm; Wt 96.2 kg
[2020-02-05] MEDS ORDERED: PAZEO2.5 ML LEFTEYE (15:34)
[2020-02-05] MEDS ORDERED: CETI5 PO (15:34)
== END 2020-02-05 15:43 | disposition home or self-care (01) ==
LOC: ER 15:03
DX: H10.12 Acute atopic conjunctivitis, left eye (principal); E11.319 Type 2 diabetes mellitus with unspecified diabetic retinopathy without macular edema; E11.43 Type 2 diabetes mellitus with diabetic autonomic (poly)neuropathy; K31.84 Gastroparesis; K21.9 Gastro-esophageal reflux disease without esophagitis; Z88.0 Allergy status to penicillin; Z88.1 Allergy status to other antibiotic agents; Z88.5 Allergy status to narcotic agent; Z79.899 Other long term (current) drug therapy; Z79.84 Long term (current) use of oral hypoglycemic drugs; Z87.891 Personal history of nicotine dependence
CPT/HCPCS: 99282

== ENCOUNTER → 2020-03-17 | Outpatient (CLI) | payer MEDICARE ==
[~2020-03-17] MED LIST changes: +CETI5 PO; +PAZEO2.5 ML LEFTEYE
[2020-03-17 08:52] LABS: Source, Urine Clean Catch
[2020-03-17 10:21] LABS: Appearance, Urine Hazy (Clear); Bilirubin, Urine Neg (Neg); Blood, Urine 1+ (Neg); Color, Urine Yellow (P-Yellow); Glucose Qualitative, Urine Neg (Neg); Ketones, Urine 1+ (Neg); Leukocyte Esterase, Urine 3+ (Neg); Nitrite, Urine Neg (Neg); Protein, Urine 1+ (Neg); Specific Gravity, Urine 1.025 (1.003-1.022); Urobilinogen, Urine NORM (Normal)
[2020-03-17 10:45] LABS: Bacteria Mod /hpf; Calcium Oxalate Crystals Mod /hpf; Mucus Light (0-Heavy); Squamous Epithelial Cells Few /hpf (Few); Transitional Epithelial Cells Rare /hpf (0-Rare); White Blood Cells, Urine 25-50 /hpf (0-5)
== END | disposition home or self-care (01) ==
LOC: LAB UCHC 08:45 → LAB 08:45 → LAB SHORT 08:45
PROVIDERS: Student in an Organized Health Care Education/Training Program
DX: D72.829 Elevated white blood cell count, unspecified (principal)
CPT/HCPCS: 81001; 87086

== ENCOUNTER 2022-03-14 08:55 | Day surgery (SDC) | payer MEDICARE, OTHER ==
[~2022-03-14] VITALS: Ht 154.9 cm; Wt 99.7 kg
[~2022-03-14 08:55] MED LIST changes: +Carvedilol12.5 MG PO; +LAMO100 PO; +Nortriptyline H50 MG PO; -OMEPRAZOLE MAGN20 MG PO; +ROSU5 PO
--- NOTE | 2022-03-14 10:54 | NUR ---
PROCEDURE CANCELED DUE TO CASE NOT BEING SCHEDULED MAC WITH ANESTHESIA DUE TO PT'S HISTORY WITH MADELAINE, BMI >40, CLASS 4 AIRWAY ASSESSMENT.
== END 2022-03-14 22:44 | disposition home or self-care (01) ==
LOC: ORSCMMR 08:55 → ORD 10:00 → ORSCMMR 22:44
DX: K22.70 Barrett's esophagus without dysplasia (principal); Z86.010 Personal history of colon polyps; Z53.9 Procedure and treatment not carried out, unspecified reason; E11.9 Type 2 diabetes mellitus without complications; I10 Essential (primary) hypertension; E03.9 Hypothyroidism, unspecified; Z79.899 Other long term (current) drug therapy
CPT/HCPCS: 82947; A9270; J7120

== ENCOUNTER 2023-04-10 09:52 | Emergency (ER) | payer MEDICARE, OTHER ==
[~2023-04-10] VITALS: Wt 99.8 kg
[2023-04-10 10:35] LABS: BASOPHILS ABSOLUTE AUTO 0.04 K/mm3 (0.00-0.23); BASOPHILS PERCENT AUTO 0 % (0-2); EOSINOPHILS ABSOLUTE AUTO 0.35 K/mm3 (0.00-0.68); EOSINOPHILS PERCENT AUTO 3 % (0-6); Hematocrit 41.1 % (33.0-51.0); Hemoglobin 13.5 g/dL (11.5-16.0); IMMATURE GRAN ABSOLUTE AUTO 0.07 K/mm3 (0.00-0.10); IMMATURE GRAN PERCENT AUTO 1 % (0-1); LYMPHOCYTES ABSOLUTE AUTO 2.13 K/mm3 (0.84-5.20); LYMPHOCYTES PERCENT AUTO 17 % (21-46); MONOCYTES ABSOLUTE AUTO 0.69 K/mm3 (0.16-1.47); MONOCYTES PERCENT AUTO 6 % (4-13); Mean Corpuscular HGB 28.4 pg (26.0-34.0); Mean Corpuscular HGB Conc 32.8 g/dL (31.5-36.5); Mean Corpuscular Volume 87 fL (80-100); Mean Platelet Volume 10.7 fL (9.1-12.4); NEUTROPHILS ABSOLUTE AUTO 9.37 K/mm3 (1.96-9.15); NEUTROPHILS PERCENT AUTO 74 % (41-73); Platelet Count 233 K/mm3 (150-400); RDW Coefficient Variation 14.3 % (11.7-14.2); RDW Standard Deviation 45.2 fL (35.1-46.3); Red Blood Cell Count 4.75 M/mm3 (3.80-5.20); White Blood Cell Count 12.65 K/mm3 (4.00-11.30)
[2023-04-10] MEDS ORDERED: CARV25 PO (10:58)
[2023-04-10] MEDS ORDERED: ELIQUIS5 M2 PO (10:58)
[2023-04-10 11:04] LABS: Albumin, Blood 3.2 g/dL (3.4-5.0); Albumin/Globulin Ratio 0.9 (0.8-1.8); Bilirubin, Total 0.4 mg/dL (0.1-1.0); Bun/Creatinine Ratio 17.1 (12.0-20.0); Calcium, Blood 8.6 mg/dL (8.5-10.1); Creatinine, Blood 0.64 mg/dL (0.40-1.00); Globulin, Blood 3.7 g/dL (2.2-4.0); Potassium, Blood 4.7 mmol/L (3.5-5.5); Total Protein, Blood 6.9 g/dL (6.4-8.2)
[2023-04-10] MEDS ORDERED: METF500C PO (11:08)
[2023-04-10 11:40] LABS: Magnesium, Blood 1.9 mg/dL (1.6-2.4)
[2023-04-10 13:30] VITALS: BP 141/64
[2023-04-10] MEDS ORDERED: Aspir 8181 MG PO (13:33)
== END 2023-04-10 13:46 | disposition home or self-care (01) ==
LOC: ER 09:52
PROVIDERS: Physician Assistant
DX: G45.9 Transient cerebral ischemic attack, unspecified (principal); I48.0 Paroxysmal atrial fibrillation; I48.92 Unspecified atrial flutter; K21.9 Gastro-esophageal reflux disease without esophagitis; Z79.01 Long term (current) use of anticoagulants; Z85.3 Personal history of malignant neoplasm of breast; E11.319 Type 2 diabetes mellitus with unspecified diabetic retinopathy without macular edema; E11.43 Type 2 diabetes mellitus with diabetic autonomic (poly)neuropathy; K31.84 Gastroparesis; K22.70 Barrett's esophagus without dysplasia; E03.9 Hypothyroidism, unspecified; Z87.891 Personal history of nicotine dependence; Z79.899 Other long term (current) drug therapy; Z88.0 Allergy status to penicillin; Z88.1 Allergy status to other antibiotic agents; Z88.5 Allergy status to narcotic agent; Z88.6 Allergy status to analgesic agent; Z88.8 Allergy status to other drugs, medicaments and biological substances
CPT/HCPCS: 70450; 80053; 82947; 83735; 83880; 84484; 85025; 93005; 93010; 93880; 96360; 99284-25; A9270; J7030

== ENCOUNTER 2023-09-09 13:46 | Observation (INO) | payer MEDICARE ==
[~2023-09-09] VITALS: Ht 157.5 cm; Wt 93.0 kg
[~2023-09-09 13:46] MED LIST changes: +Aspir 8181 MG PO; +CARV25 PO; +ELIQUIS5 M2 PO; +LACT PO; +NITR100CA PO; +SULTRIDS PO
[2023-09-09 14:25] LABS: BASOPHILS ABSOLUTE AUTO 0.03 K/mm3 (0.00-0.23); BASOPHILS PERCENT AUTO 0 % (0-2); EOSINOPHILS ABSOLUTE AUTO 0.28 K/mm3 (0.00-0.68); EOSINOPHILS PERCENT AUTO 2 % (0-6); Hematocrit 40.9 % (33.0-51.0); IMMATURE GRAN ABSOLUTE AUTO 0.06 K/mm3 (0.00-0.10); IMMATURE GRAN PERCENT AUTO 1 % (0-1); LYMPHOCYTES ABSOLUTE AUTO 2.33 K/mm3 (0.84-5.20); LYMPHOCYTES PERCENT AUTO 18 % (21-46); MONOCYTES PERCENT AUTO 5 % (4-13); Mean Corpuscular HGB 27.7 pg (26.0-34.0); Mean Corpuscular HGB Conc 31.8 g/dL (31.5-36.5); Mean Corpuscular Volume 87 fL (80-100); Mean Platelet Volume 10.2 fL (9.1-12.4); NEUTROPHILS ABSOLUTE AUTO 9.59 K/mm3 (1.96-9.15); NEUTROPHILS PERCENT AUTO 74 % (41-73); Platelet Count 249 K/mm3 (150-400); RDW Coefficient Variation 15.3 % (11.7-14.2); Red Blood Cell Count 4.69 M/mm3 (3.80-5.20); White Blood Cell Count 12.99 K/mm3 (4.00-11.30)
[2023-09-09] MEDS ORDERED: NS 1,000 ML IV SCH (14:35)
[2023-09-09] MEDS ORDERED: Aspirin 325 MG Tab PO ONE (14:55)
[2023-09-09 14:59] LABS: Albumin, Blood 3.4 g/dL (3.4-5.0); Albumin/Globulin Ratio 0.9 (0.8-1.8); Bilirubin, Total 0.3 mg/dL (0.1-1.0); Bun/Creatinine Ratio 19.2 (12.0-20.0); Calcium, Blood 9.5 mg/dL (8.5-10.1); Creatinine, Blood 0.99 mg/dL (0.40-1.00); Globulin, Blood 3.6 g/dL (2.2-4.0); Magnesium, Blood 1.8 mg/dL (1.6-2.4); Potassium, Blood 4.8 mmol/L (3.5-5.5)
[2023-09-09] MEDS ORDERED: ROSU5 PO (16:08)
[2023-09-09] MEDS ORDERED: TRULICITY0.75 MG/01 SQ (16:09)
[2023-09-09 18:35] VITALS: BP 134/54
--- NOTE | 2023-09-09 18:36 | NUR ---
ADMIT NOTE- PT ADMITTED THROUGH THE ED SHE ARRIVED AT 1830, FOR A NEW CVA. PT STATES SHE HAD A LITTLE TIA AND SHES FINE NOW. PT IS UP AND AMBULATING TO THE BATHROOM 1PA AT THIS TIME. NO S&S OF DISTRESS NOTED. MRI SCREENING FORM IN THE FRONT OF THE CHART.
[2023-09-09 19:53] VITALS: BP 124/57
[2023-09-09] MEDS ORDERED: Apixaban 5 MG Tab PO SCH (21:00)
[2023-09-09] MEDS ORDERED: Rosuvastatin Calcium 10 MG Tab PO SCH (21:00)
[2023-09-10 05:05] VITALS: BP 152/70
[2023-09-10 05:55] LABS: BASOPHILS ABSOLUTE AUTO 0.05 K/mm3 (0.00-0.23); BASOPHILS PERCENT AUTO 1 % (0-2); EOSINOPHILS ABSOLUTE AUTO 0.35 K/mm3 (0.00-0.68); EOSINOPHILS PERCENT AUTO 3 % (0-6); Hematocrit 36.5 % (33.0-51.0); Hemoglobin 11.6 g/dL (11.5-16.0); IMMATURE GRAN ABSOLUTE AUTO 0.04 K/mm3 (0.00-0.10); IMMATURE GRAN PERCENT AUTO 0 % (0-1); LYMPHOCYTES ABSOLUTE AUTO 2.49 K/mm3 (0.84-5.20); LYMPHOCYTES PERCENT AUTO 24 % (21-46); MONOCYTES ABSOLUTE AUTO 0.62 K/mm3 (0.16-1.47); MONOCYTES PERCENT AUTO 6 % (4-13); Mean Corpuscular HGB 27.8 pg (26.0-34.0); Mean Corpuscular HGB Conc 31.8 g/dL (31.5-36.5); Mean Corpuscular Volume 87 fL (80-100); Mean Platelet Volume 10.6 fL (9.1-12.4); NEUTROPHILS ABSOLUTE AUTO 6.99 K/mm3 (1.96-9.15); NEUTROPHILS PERCENT AUTO 66 % (41-73); Platelet Count 195 K/mm3 (150-400); RDW Coefficient Variation 15.2 % (11.7-14.2); RDW Standard Deviation 48.4 fL (35.1-46.3); Red Blood Cell Count 4.18 M/mm3 (3.80-5.20); White Blood Cell Count 10.54 K/mm3 (4.00-11.30)
[2023-09-10 06:11] LABS: Albumin/Globulin Ratio 0.9 (0.8-1.8); Bilirubin, Total 0.4 mg/dL (0.1-1.0); Bun/Creatinine Ratio 24.8 (12.0-20.0); Calcium, Blood 9.4 mg/dL (8.5-10.1); Creatinine, Blood 0.69 mg/dL (0.40-1.00); Globulin, Blood 3.2 g/dL (2.2-4.0); Magnesium, Blood 1.9 mg/dL (1.6-2.4); Potassium, Blood 4.2 mmol/L (3.5-5.5); Total Protein, Blood 6.2 g/dL (6.4-8.2)
--- NOTE | 2023-09-10 06:33 | NUR ---
Shift Summary Pt admitted from ED for possible CVA/TIA. CT was clean, MRI planned for today. MRI screening form is completed, faxed and in the paper chart. Pt is much improved since before coming to the hospital although she still has lingering LLE weakness and she says her L foot drags and she cannot control it. She is AOx4, no facial droop or slurring, eyes PERRLA, independent in the room, continent. She slept well though most of the night, no complaints. She is on tele, no events.
[2023-09-10 07:29] VITALS: BP 137/61
[2023-09-10] MEDS ORDERED: Omeprazole 20 MG CapCR PO SCH (07:30)
[2023-09-10] MEDS ORDERED: MetFORMIN HCl 500 mg PO SCH (08:00)
[2023-09-10] MEDS ORDERED: Carvedilol 25 MG Tab PO SCH (08:00)
[2023-09-10] MEDS ORDERED: Aspirin 81 MG TabEC PO SCH (09:00)
[2023-09-10] MEDS ORDERED: LamoTRIgine 100 MG Tab PO SCH (09:00)
[2023-09-10] MEDS ORDERED: Anastrozole 1 MG TAB PO SCH (09:00)
[2023-09-10 14:57] VITALS: BP 132/64
--- NOTE | 2023-09-10 19:20 | NUR ---
SHIFT SUMMARY 1 PERSON ASSIST WITH AMBULATING USING A FWW. DENIES PAIN OR NAUSEA TODAY. HAND AND LEG STAFF APPRAISER EQUAL BUT L LEG UNABLE TO MAINTAIN PRESSURE FRO VERY LONG. ECHO AND MRI COMPLETED.
[2023-09-10 19:31] VITALS: BP 161/93
[2023-09-11 04:06] VITALS: BP 109/92
--- NOTE | 2023-09-11 04:07 | NUR ---
DIESEL ENGINE II PIPE FITTER SUMMARY BP ELEVATED, OTHERWISE VSS. ASYMPTOMATIC. NEURO CHECKS LEAD MILITARY ANALYST EQUAL, VOICED FEELING IN BUE, BUT "NEUROPATHY" IN BLE. ALERT AND ORIENTED X 4. JOKES WITH NURSE. HAS BEEN RSTING QUIETLY WITH FEW INTERRUPTIONS. CALL LIGHT IN REACH, RAILS UP X 2 AND BED IN LOW POSITION FOR SAFETY. UP TO BATHROOM WITH WALKER AND ASSIST. HAD BM AND VOIDED QS -SEE DOC FOR I AND O. WILL CONTINUE TO MONITOR.
[2023-09-11 07:08] VITALS: BP 138/62
[2023-09-11] MEDS ORDERED: METF500 PO (11:02)
--- NOTE | 2023-09-11 12:05 | NUR ---
DISCHARGE INSTRUCTIONS COMPLETED AND DISCUSSED WITH PT EXPRESSING UNDERSTANDING. SCRIPTS FAXED TO [email or web address]. TO [facility] VIA W/C.
== END 2023-09-11 12:04 | disposition home or self-care (01) ==
LOC: ER 13:46 → MEDS 13:47
PROVIDERS: Student in an Organized Health Care Education/Training Program; ADMIT Family Medicine
DX: I63.9 Cerebral infarction, unspecified (principal); G81.94 Hemiplegia, unspecified affecting left nondominant side; I10 Essential (primary) hypertension; E11.9 Type 2 diabetes mellitus without complications; I48.0 Paroxysmal atrial fibrillation; G47.33 Obstructive sleep apnea (adult) (pediatric); K21.9 Gastro-esophageal reflux disease without esophagitis; Z86.73 Personal history of transient ischemic attack (TIA), and cerebral infarction without residual deficits; Z88.5 Allergy status to narcotic agent; Z88.0 Allergy status to penicillin; Z88.1 Allergy status to other antibiotic agents; Z88.8 Allergy status to other drugs, medicaments and biological substances; Z79.01 Long term (current) use of anticoagulants; Z79.82 Long term (current) use of aspirin; Z79.85 Long-term (current) use of injectable non-insulin antidiabetic drugs; Z79.84 Long term (current) use of oral hypoglycemic drugs; Z79.899 Other long term (current) drug therapy
CPT/HCPCS: 36415; 70450; 70496; 70551; 80053; 82947; 83735; 85025; 93005; 93010; 93306; 96360-59; 97112; 97116; 97162; 97165; 97530; 99285-25; A9270; G0378; J7030; Q9967

== ENCOUNTER 2024-04-28 00:04 | Emergency (ER) | payer MEDICARE, OTHER ==
[~2024-04-28] VITALS: Ht 157.5 cm; Wt 90.7 kg
[~2024-04-28 00:04] MED LIST changes: +TRULICITY0.75 MG/01 SQ
[2024-04-28] MEDS ORDERED: LAMOTRIGINE100 M1 PO (00:23)
[2024-04-28] MEDS ORDERED: NORTRIPTYLINE H5012 PO (00:24)
[2024-04-28] MEDS ORDERED: METFORMIN HCL500 M3 PO (00:24)
[2024-04-28 00:25] LABS: BASOPHILS ABSOLUTE AUTO 0.04 K/mm3 (0.00-0.23); BASOPHILS PERCENT AUTO 0 % (0-2); EOSINOPHILS ABSOLUTE AUTO 0.17 K/mm3 (0.00-0.68); EOSINOPHILS PERCENT AUTO 2 % (0-6); Hematocrit 44.7 % (33.0-51.0); Hemoglobin 14.7 g/dL (11.5-16.0); IMMATURE GRAN ABSOLUTE AUTO 0.03 K/mm3 (0.00-0.10); IMMATURE GRAN PERCENT AUTO 0 % (0-1); LYMPHOCYTES ABSOLUTE AUTO 2.01 K/mm3 (0.84-5.20); LYMPHOCYTES PERCENT AUTO 20 % (21-46); MONOCYTES ABSOLUTE AUTO 0.65 K/mm3 (0.16-1.47); MONOCYTES PERCENT AUTO 6 % (4-13); Mean Corpuscular HGB 27.3 pg (26.0-34.0); Mean Corpuscular HGB Conc 32.9 g/dL (31.5-36.5); Mean Corpuscular Volume 83 fL (80-100); Mean Platelet Volume 10.1 fL (9.1-12.4); NEUTROPHILS ABSOLUTE AUTO 7.34 K/mm3 (1.96-9.15); NEUTROPHILS PERCENT AUTO 72 % (41-73); Platelet Count 241 K/mm3 (150-400); RDW Coefficient Variation 13.2 % (11.7-14.2); RDW Standard Deviation 40.3 fL (35.1-46.3); Red Blood Cell Count 5.38 M/mm3 (3.80-5.20); White Blood Cell Count 10.24 K/mm3 (4.00-11.30)
[2024-04-28] MEDS ORDERED: ROSUVASTATIN CA20 MG PO (00:25)
[2024-04-28 00:48] LABS: Albumin, Blood 3.4 g/dL (3.4-5.0); Albumin/Globulin Ratio 0.9 (0.8-1.8); Bilirubin, Total 0.5 mg/dL (0.1-1.0); Bun/Creatinine Ratio 17.9 (12.0-20.0); Calcium, Blood 9.2 mg/dL (8.5-10.1); Creatinine, Blood 0.61 mg/dL (0.40-1.00); Globulin, Blood 3.8 g/dL (2.2-4.0); Potassium, Blood 3.8 mmol/L (3.5-5.5); Total Protein, Blood 7.2 g/dL (6.4-8.2)
[2024-04-28 01:01] LABS: Influenza A, PCR NEGATIVE (NEGATIVE); Influenza B, PCR NEGATIVE (NEGATIVE); Resp Syncytial Virus, PCR NEGATIVE (NEGATIVE)
[2024-04-28] MEDS ORDERED: Ondansetron HCl 2 MG / ML 2ML Vial IV ONE (01:05)
[2024-04-28] MEDS ORDERED: NS 1,000 ML IV SCH ×2 (01:05→03:50)
[2024-04-28 01:16] LABS: Magnesium, Blood 1.7 mg/dL (1.6-2.4)
[2024-04-28 02:19] LABS: SARS-Cov-2 (COVID-19) PCR, MMC POSITIVE (NEGATIVE)
[2024-04-28] MEDS ORDERED: Mag Sulfate 1 GM/D5% 100ML 100 ML IV ONE (02:30)
[2024-04-28 03:20] LABS: Source, Urine Clean Catch
[2024-04-28 03:24] LABS: Bilirubin, Urine Neg (Neg); Blood, Urine 1+ (Neg); Glucose Qualitative, Urine Neg (Neg); Ketones, Urine 3+ (Neg); Leukocyte Esterase, Urine 3+ (Neg); Nitrite, Urine Neg (Neg); Protein, Urine 2+ (Neg); Urobilinogen, Urine NORM (Normal); pH, Urine 6.5 (5.0-8.0)
[2024-04-28 03:42] LABS: Appearance, Urine Clear (Clear); Color, Urine Yellow (P-Yellow)
[2024-04-28 03:43] LABS: Bacteria Few /hpf; Red Blood Cells, Urine 0-2 /hpf (0-2); Squamous Epithelial Cells Rare /hpf (Few)
[2024-04-28] MEDS ORDERED: Trimethoprim/Sulfamethoxazole DS Tab PO ONE (05:00)
[2024-04-28] MEDS ORDERED: ONDA4ODT MM (05:23)
[2024-04-28] MEDS ORDERED: SULTRIDS PO (05:23)
[2024-04-28] MEDS ORDERED: RX Prepack 2 Tabs Ondansetron ODT 4MG UD ONE (05:25)
[2024-04-28 05:30] VITALS: BP 124/87
== END 2024-04-28 05:50 | disposition home or self-care (01) ==
LOC: ER 00:04
PROVIDERS: Student in an Organized Health Care Education/Training Program
DX: U07.1 COVID-19 (principal); N39.0 Urinary tract infection, site not specified; E03.9 Hypothyroidism, unspecified; E11.9 Type 2 diabetes mellitus without complications; E78.5 Hyperlipidemia, unspecified; K21.9 Gastro-esophageal reflux disease without esophagitis; I10 Essential (primary) hypertension; Z87.891 Personal history of nicotine dependence; Z86.73 Personal history of transient ischemic attack (TIA), and cerebral infarction without residual deficits; G47.33 Obstructive sleep apnea (adult) (pediatric); Z79.84 Long term (current) use of oral hypoglycemic drugs; Z79.899 Other long term (current) drug therapy; Z88.0 Allergy status to penicillin; Z88.5 Allergy status to narcotic agent; Z88.1 Allergy status to other antibiotic agents; Z88.8 Allergy status to other drugs, medicaments and biological substances
CPT/HCPCS: 0241U; 71046; 74177; 80053; 81001; 83605; 83690; 83735; 84484; 85025; 87086; 87147; 93005; 93010; 96361; 96365-59; 96375; 99285-25; A9270; J2405; J3475; J7030; Q9967

== ENCOUNTER 2024-08-31 13:27 | Day surgery (SDC) | payer MEDICARE ==
[~2024-08-31] VITALS: Ht 157.5 cm; Wt 87.2 kg
[~2024-08-31 13:27] MED LIST changes: +Atropine Sulfate 0.1 MG/ML 10ML SYR ONE; +Glycopyrrolate 0.2 MG/ML 1MLVIAL ONE; +LAMOTRIGINE100 M1 PO; +Lactated Ringer's 1,000 ML IV ONE; +Lidocaine 2% 5 ML SDV ONE; +Lidocaine HCl/Pf 1% 5 ML VIAL ONE; +METFORMIN HCL500 M3 PO; +NORTRIPTYLINE H5012 PO; +ONDA4ODT MM; +Ondansetron HCl 2 MG / ML 2ML Vial ONE; +ROSUVASTATIN CA20 MG PO; +ePHEDrine Sulfate 50 MG/ML 1ML Injection ONE
[2024-08-31] MEDS ORDERED: CARVEDILOL12.5 MG (14:44)
[2024-08-31] MEDS ORDERED: FLUT.05NI (14:44)
[2024-08-31] MEDS ORDERED: ANASTROZOLE1 M7 (14:44)
[2024-08-31] MEDS ORDERED: Lactated Ringer's 1,000 ML IV ONE (15:28)
[2024-08-31] MEDS ORDERED: propofoL 20 ML IV ONE (15:32)
[2024-08-31] MEDS ORDERED: propofoL 50 ML IV ONE (15:39)
[2024-08-31 16:59] VITALS: BP 154/71
== END 2024-08-31 17:06 | disposition home or self-care (01) ==
LOC: ORSCSDS 13:27
PROVIDERS: Internal Medicine Gastroenterology
PROC: 0DB78ZX Excision of Stomach, Pylorus, Via Natural or Artificial Opening Endoscopic, Diagnostic (ICD-10-PCS; principal; 2024-08-31 15:00)
PROC: 0DBL8ZX Excision of Transverse Colon, Via Natural or Artificial Opening Endoscopic, Diagnostic (ICD-10-PCS; principal; 2024-08-31 15:00)
DX: K22.70 Barrett's esophagus without dysplasia (principal); Z12.11 Encounter for screening for malignant neoplasm of colon; Z86.0100 Personal history of colon polyps, unspecified; K31.7 Polyp of stomach and duodenum; D12.3 Benign neoplasm of transverse colon; K21.9 Gastro-esophageal reflux disease without esophagitis; K44.9 Diaphragmatic hernia without obstruction or gangrene; Z80.0 Family history of malignant neoplasm of digestive organs; Z86.73 Personal history of transient ischemic attack (TIA), and cerebral infarction without residual deficits; Z79.01 Long term (current) use of anticoagulants; Z79.85 Long-term (current) use of injectable non-insulin antidiabetic drugs; I10 Essential (primary) hypertension; E11.9 Type 2 diabetes mellitus without complications; F31.9 Bipolar disorder, unspecified; Z79.84 Long term (current) use of oral hypoglycemic drugs; Z79.899 Other long term (current) drug therapy
CPT/HCPCS: 82947; 88305; 88342; J0461; J2003; J2405; J2704; J7120